=== PATIENT | male | born 1955 | race Caucasian/White ===

== ENCOUNTER 2020-09-16 06:41 | Outpatient (REF) | payer OTHER, MEDICARE, SELFPAY ==
[2020-09-16 07:46] LABS: Glucose Fasting 149 mg/dL (60-99)
[2020-09-17 18:06] LABS: C Peptide < 0.10 ng/mL (0.80-3.85)
== END 2020-09-16 06:42 | disposition home or self-care (01) ==
LOC: HO.LAB 06:41
PROVIDERS: Visit Provider Internal Medicine Endocrinology, Diabetes & Metabolism
DX: E10.9 Type 1 diabetes mellitus without complications (principal)
CPT/HCPCS: 82947; 84681

== ENCOUNTER 2021-03-02 06:14 | Outpatient (REF) | payer OTHER, MEDICARE, SELFPAY ==
[2021-03-02 07:00] LABS: MANUAL DIFF FLAG NO
[2021-03-02 07:13] LABS: Basophils Absolute Auto 0.1 X10*3/uL (0.0-0.2); Basophils Percent Auto 1.1 % (0-2); Eosinophils Absolute Auto 0.5 X10*3/uL (0.0-0.4); Eosinophils Percent Auto 8.2 % (0-4); Hematocrit 46.1 % (42-52); Hemoglobin 15.7 g/dl (14.0-18.0); Imm Gran Abs Auto 0.02 X10*3/uL (0.00-0.03); Imm Gran Pct Auto 0.3 % (0.0-0.4); Lymphocytes Absolute Auto 1.7 X10*3/uL (1.2-4.9); Mean Corpuscular HGB Conc 34.1 g/dl (31.0-36.0); Mean Corpuscular Hemoglobin 31.3 pg (27.0-33.0); Mean Platelet Volume 10.2 fL (9.4-12.4); Monocytes Absolute Auto 0.7 X10*3/uL (0.1-1.2); Monocytes Percent Auto 10.9 % (2-11); Neutrophils Absolute Auto 3.3 X10*3/uL (2.0-8.3); Neutrophils Percent Auto 52.5 % (45-73); Platelet Count 249 X10*3/uL (160-400); Red Blood Count 5.01 X10*6/uL (4.60-5.80); White Blood Count 6.3 X10*3/uL (4.8-10.8)
[2021-03-02 07:35] LABS: Estimated Average Glucose 126 mg/dL
[2021-03-02 07:39] LABS: Creatinine Urine 139.95 mg/dL; Microalbum/Creatinine Ratio Ur 3.5 ug/mg cr
[2021-03-02 07:48] LABS: Alanine Aminotransferase 25 U/L (0-40); Albumin Level 3.9 g/dL (3.5-5.0); Alkaline Phosphatase 44 U/L (39-117); Anion Gap 9 (12-20); Aspartate Amino Transferase 24 U/L (5-37); Blood Urea Nitrogen 19 mg/dL (9-16); Carbon Dioxide 27 mmol/L (22-29); Chloride 107 mmol/L (96-108); Estimated Glomerular Filt Rate > 60; Glucose Random 144 mg/dL (60-115); Potassium 4.4 mmol/L (3.3-5.1); Sodium 139 mmol/L (135-145); Total Protein 6.6 g/dL (6.5-8.0)
[2021-03-02 08:09] LABS: Prostate Specific Antigen 7.38 ng/mL (<0.05-4.0)
== END 2021-03-02 06:15 | disposition home or self-care (01) ==
LOC: HO.LABR 06:14
PROVIDERS: PCP Internal Medicine Endocrinology, Diabetes & Metabolism; Visit Provider Internal Medicine Endocrinology, Diabetes & Metabolism
DX: E10.9 Type 1 diabetes mellitus without complications (principal); N40.0 Benign prostatic hyperplasia without lower urinary tract symptoms; E78.00 Pure hypercholesterolemia, unspecified; Z12.5 Encounter for screening for malignant neoplasm of prostate
CPT/HCPCS: 36415; 80053; 82043; 83036; 84153; 85025

== ENCOUNTER 2021-10-06 17:56 | Emergency (ER) | payer OTHER, MEDICARE, SELFPAY ==
--- NOTE | ~2021-10-06 | CT_ITS ---
EXAMINATION: CT HEAD WITHOUT CONTRAST CLINICAL INFORMATION: Headache COMPARISON: None. TECHNIQUE: Contiguous axial imaging was performed from the skull base to vertex without intravenous administration of contrast. Coronal and sagittal reformatted images are performed at the CT scanner. [This CT examination was performed using dose optimization techniques as appropriate, variously including the following: *Automated exposure control *Adjustment of mA and/or kV according to patient size (this includes techniques or standardized protocols for targeted exams where dose is matched to indication/reason for exam; i.e. extremities or head) *Use of iterative reconstruction technique] DLP: 803 mGy-cm. FINDINGS: There is no evidence of acute intracranial hemorrhage or territorial infarction. No abnormal mass-effect or midline shift is seen. Cifuentes to white matter differentiation is well preserved. No extra-axial fluid collections are identified. The ventricles are normal in size. There is no abnormal attenuation within the brain parenchyma. There is no osseous abnormality. The mastoid air cells and visualized portions of the paranasal sinuses are well-aerated. CT/CT head/brain wo con IMPRESSION: No acute intracranial pathology.
[2021-10-06 18:07] VITALS: BP 156/50; PULSE 74; RESP 18; TEMP 36.5; BMI 27.2
[2021-10-06 20:49] VITALS: BP 134/68; PULSE 65; RESP 18; O2SAT 96
--- NOTE | 2021-10-06 21:01 | ED.NEUROSD ---
HPI - Neuro Symptoms/Deficit General Chief Complaint: Neuro Symptoms/Deficit Stated Complaint: L Sided Facial Droop Time Seen by Provider: 10/06/21 18:42 Source: patient Mode of arrival: ambulatory Limitations: no limitations History of Present Illness HPI Narrative: This is a very pleasant 66 years old patient presented to the emergency department with a left facial droop denies any other neurologic symptoms ,there is no aphasia and no weakness Onset (ago): hour(s) (6) Location: left face Severity: moderate Quality: weak Relieving factors: none Exacerbating factors: none Context: gradual onset Related Data Previous Rx's Medication Instructions Recorded prednisone 20 mg tablet 40 mg PO DAILY #10 tab 10/06/21 Allergies Allergy/AdvReac Type Severity Reaction Status Date / Time No Known Allergies Allergy Verified 10/06/21 18:13 Review of Systems Constitutional: Constitutional: Reports no additional constitutional complaints ENT: Denies vertigo and Denies dizziness Cardiovascular: Cardiovascular: Reports no additional cardiovascular complaints and Denies syncope Respiratory: Respiratory: Reports no additional respiratory complaints Gastrointestinal: Gastrointestinal: Reports no additional gastrointestinal complaints Neurologic: Denies confusion, Denies vertigo, Denies dizziness and Denies syncope Psychiatric: Psychiatric: Denies confusion [facility] Past Medical History Attestation statement: The following information was validated with the patient. Social History Social History Advance Directives: No Advance Directives Information Provided: No Physical Exam Vital Signs: Vital Signs: Last Vital Signs Temp 97.7 F 10/06/21 18:07 Pulse 65 10/06/21 20:49 Resp 18 10/06/21 20:49 BP 134/68 10/06/21 20:49 Pulse Ox 96 10/06/21 20:49 Body Mass Index 27.2 Const: Other: Patient is not toxic-appearing General: No confusion Orientation/consciousness: oriented to person, patient oriented x3 and No confusion HENMT: Head: Yes normal to inspection and Yes No palpable skull fracture present General nose exam: Normal external nose present Face and sinus: Yes normal facial exam and Yes other (There is an left facial droop patient is also unable to close the left eye) Mouth: Normal oral and palatal mucosa present Neck: Neck: Yes normal visual inspection, Yes full ROM and Yes no lymphadenopathy Chest: Chest palpation & inspection: normal inspection of the chest Resp: Effort & Inspection: normal respiratory effort Auscultation: clear to auscultation bilaterally Cardio: Jugular venous distension: no JVD Rate: regular rate Rhythm: regular rhythm GI: Inspection: Yes normal to inspection Palpation (GI): Soft to palpation, not firm, nontender and no guarding Auscultation: normal bowel sounds Neuro: General: oriented to person, patient oriented x3 and No confusion Cranial nerves: Yes Other cranial nerve findings present (left facial droop,left eye unable to close) Cognition (Neuro): normal cognition MDM - Neuro Symptoms/Deficit MDM Narrative Medical decision making narrative: 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 with a negative CT because he is diabetic I anticipate discharge home on prednisone Lab Data Result diagrams: 10/06/21 21:00 10/06/21 21:00 Labs: Lab Results 10/06/21 10/06/21 Range/Units 21:00 21:00 WBC 7.6 (4.8-10.8) X10*3/uL RBC 4.93 (4.60-5.80) X10*6/uL Hgb 15.6 (14.0-18.0) g/dl Hct 45.5 (42.0-52.0) % MCV 92.3 (80.0-98.0) fL MCH 31.6 (27.0-33.0) pg MCHC 34.3 (31.0-36.0) g/dl RDW 12.0 (11.0-16.0) % Plt Count 226 (160-400) X10*3/uL MPV 9.8 (9.4-12.4) fL Immature Gran % (Auto) 0.3 (0.0-0.4) % Neut % (Auto) 53.5 (45-73) % Lymph % (Auto) 27.7 (20-40) % [place] % (Auto) 11.1 H (2-11) % Eos % (Auto) 6.5 H (0-4) % Baso % (Auto) 0.9 (0-2) % Lymph # (Auto) 2.1 (1.2-4.9) X10*3/uL [place] # (Auto) 0.8 (0.1-1.2) X10*3/uL Eos # (Auto) 0.5 H (0.0-0.4) X10*3/uL Baso # (Auto) 0.1 (0.0-0.2) X10*3/uL Abs Immat Gran (auto) 0.02 (0.00-0.03) X10*3/uL Absolute Neuts (auto) 4.1 (2.0-8.3) x10*3/uL Absolute Nucleated RBC 0.000 (0.0-0.012) X10*3/uL Nucleated RBC % (auto) 0.0 (0.0-0.2) /100WBC Sodium 138 (135-145) mmol/L Potassium 4.7 (3.3-5.1) mmol/L Chloride 106 (96-108) mmol/L Carbon Dioxide 26 (22-29) mmol/L Anion Gap 11 L (12-20) BUN 16 (9-16) mg/dL Creatinine 0.97 (0.5-1.4) mg/dL Estim Creat Clear Calc 77.3 Estimated GFR > 60 Random Glucose 188 H (60-115) mg/dL Calcium 9.0 (8.4-10.2) mg/dL Total Bilirubin 0.4 (0.0-1.0) mg/dL AST 21 (5-37) U/L ALT 20 (0-40) U/L Alkaline Phosphatase 38 L (39-117) U/L Total Protein 6.6 (6.5-8.0) g/dL Albumin 3.8 (3.5-5.0) g/dL Discharge Plan Discharge Clinical Impression: Cervantes palsy Patient Disposition: Home, Self-Care Instructions: Cervantes Palsy (ED) Prescriptions: New prednisone 20 mg tablet 40 mg PO DAILY Qty: 10 RF: 0 Interventions: ED Discharge Assessment Last Done: 10/06/21 22:31 Discharge Date/Time: 10/06/21 22:36
--- NOTE | 2021-10-06 21:01 | PC.NURSE ---
ED provider at bed side.
[2021-10-06 21:08] LABS: Basophils Absolute Auto 0.1 X10*3/uL (0.0-0.2); Basophils Percent Auto 0.9 % (0-2); Eosinophils Absolute Auto 0.5 X10*3/uL (0.0-0.4); Eosinophils Percent Auto 6.5 % (0-4); Hematocrit 45.5 % (42.0-52.0); Hemoglobin 15.6 g/dl (14.0-18.0); Imm Gran Abs Auto 0.02 X10*3/uL (0.00-0.03); Imm Gran Pct Auto 0.3 % (0.0-0.4); Lymphocytes Absolute Auto 2.1 X10*3/uL (1.2-4.9); Lymphocytes Percent Auto 27.7 % (20-40); MANUAL DIFF FLAG NO; Mean Corpuscular HGB Conc 34.3 g/dl (31.0-36.0); Mean Corpuscular Hemoglobin 31.6 pg (27.0-33.0); Mean Corpuscular Volume 92.3 fL (80.0-98.0); Mean Platelet Volume 9.8 fL (9.4-12.4); Monocytes Absolute Auto 0.8 X10*3/uL (0.1-1.2); Monocytes Percent Auto 11.1 % (2-11); Neutrophils Absolute Auto 4.1 x10*3/uL (2.0-8.3); Neutrophils Percent Auto 53.5 % (45-73); Platelet Count 226 X10*3/uL (160-400); Red Blood Count 4.93 X10*6/uL (4.60-5.80); White Blood Count 7.6 X10*3/uL (4.8-10.8)
[2021-10-06 21:27] LABS: Alanine Aminotransferase 20 U/L (0-40); Albumin Level 3.8 g/dL (3.5-5.0); Alkaline Phosphatase 38 U/L (39-117); Anion Gap 11 (12-20); Aspartate Amino Transferase 21 U/L (5-37); Bilirubin Total 0.4 mg/dL (0.0-1.0); Blood Urea Nitrogen 16 mg/dL (9-16); Carbon Dioxide 26 mmol/L (22-29); Chloride 106 mmol/L (96-108); Creatinine Clr Calc Pharmacy 77.3; Estimated Glomerular Filt Rate > 60; Glucose Random 188 mg/dL (60-115); Potassium 4.7 mmol/L (3.3-5.1); Sodium 138 mmol/L (135-145); Total Protein 6.6 g/dL (6.5-8.0)
--- NOTE | 2021-10-06 21:34 | PC.NURSE ---
PT ambulated to CT scan.
[2021-10-06] MEDS: predniSONE 20 MG TABLET 40 MG PO (22:31)
== END 2021-10-06 22:36 | disposition home or self-care (01) ==
PROVIDERS: Emergency Provider Emergency Medicine; PCP Internal Medicine Endocrinology, Diabetes & Metabolism
DX: G51.0 Bell's palsy (principal)
CPT/HCPCS: 36415; 70450; 80053; 85025; 99284

== ENCOUNTER 2021-10-13 06:22 | Outpatient (REF) | payer OTHER, MEDICARE, SELFPAY ==
[2021-10-13 07:42] LABS: Cholesterol 224 mg/dL; HDL Cholesterol 77 mg/dL; LDL Cholesterol Calculated 137 mg/dl; Triglycerides 52 mg/dL
[2021-10-13 08:15] LABS: Prostate Specific Antigen Scr 6.36 ng/mL (<0.05-4.0)
[2021-10-13 08:47] LABS: Reflex LDLD? No
[2021-10-14 05:01] LABS: Lyme Abs Screen <0.90 index
== END 2021-10-13 06:23 | disposition home or self-care (01) ==
LOC: HO.LAB 06:22
PROVIDERS: PCP Internal Medicine Endocrinology, Diabetes & Metabolism; Visit Provider Internal Medicine Endocrinology, Diabetes & Metabolism
DX: Z12.5 Encounter for screening for malignant neoplasm of prostate (principal); G51.0 Bell's palsy
CPT/HCPCS: 36415; 80061; 84153; 86617; 86618

== ENCOUNTER 2022-11-24 12:38 | Emergency (ER) | payer OTHER, MEDICARE, SELFPAY ==
[2022-11-24 12:49] VITALS: BP 130/67; PULSE 69; RESP 18; TEMP 37.1; O2SAT 99; BMI 29.0
--- NOTE | 2022-11-24 12:49 | ED_ITS ---
HPI - General Adult General Chief complaint: Skin/Abscess/Foreign Body Stated complaint: CAT SCRATCH R HAND Time Seen by Provider: 11/24/22 12:52 Source: patient and family () Mode of arrival: ambulatory Limitations: no limitations History of Present Illness HPI narrative: Patient is a 67 year old assigned male at with a history of diabetes presenting to the emergency department today with a cat scratch to the right hand. Patient states that last night he was scratched by his cat and this morning it has already started to become red and swell. Patient states that his last tetanus shot was 2 years ago. Patient denies any dizziness, lightheadedness, abdominal pain, nausea, vomiting, fever, chills, blurry vision, double vision, loss of vision, chest pain, difficulty breathing, shortness of breath, back pain, night sweats, pain with urination, increased urinary frequency, increased urinary urgency, blood in his urine or stool, syncope or a near syncopal episode, bowel incontinence, bladder incontinence, bowel retention, bladder retention, or any other complaints at this time. Onset (ago): hour(s) (12) Location: right and upper extremity (hand) Radiation: non-radiation Severity: mild Severity scale (1-10): 2 Quality: aching and dull Pain Consistency: constant Relieving factors: none Exacerbating factors: none Associated symptoms: denies other symptoms Treatments prior to arrival: none Related Data Previous Rx's Medication Instructions Recorded prednisone 20 mg tablet 40 mg PO DAILY #10 tabs 10/06/21 amoxicillin 875 mg-potassium 1 tab PO BID 10 days #20 tabs 11/24/22 clavulanate 125 mg tablet Allergies Allergy/AdvReac Type Severity Reaction Status Date / Time No Known Allergies Allergy Verified 10/06/21 18:13 Review of Systems Constitutional: Constitutional: Reports no additional constitutional complaints, Denies chills, Denies fever(s) and Denies night sweats Eyes: Eyes: Reports no additional eye complaints, Denies blurry vision, Denies change in vision, Denies diplopia, Denies eye discharge, Denies loss of vision and Denies eye pain ENT: Denies dizziness Cardiovascular: Cardiovascular: Reports no additional cardiovascular complaints, Denies chest pain, Denies lightheadedness, Denies Loss of Consciousness and Denies dyspnea Respiratory: Respiratory: Reports no additional respiratory complaints and Denies dyspnea Gastrointestinal: Gastrointestinal: Reports no additional gastrointestinal complaints, Denies abdominal pain, Denies melena, Denies hematochezia, Denies change in bowel habits and Denies change in stool character Genitourinary: Genitourinary: Reports no additional male genitourinary comp laints, Denies hematuria, Denies oliguria, Denies difficulty urinating, Denies dysuria, Denies urinary frequency, Denies urinary hesitancy, Denies urinary incontinence and Denies urinary urgency Musculoskeletal: Musculoskeletal: Reports no additional musculoskeletal complaints, Denies numbness and Denies tingling Comments: small scratch to dorsal right hand Neurologic: Denies dizziness, Denies loss of vision, Denies numbness and Denies tingling Psychiatric: Psychiatric: Reports no additional psychiatric complaints Endocrine: Endocrine: Reports no additional endocrine complaints Hematologic/Lymphatic: Hematologic/Lymphatic: Reports no additional hematologic/lymphatic complaints Allergic/Immunologic: Allergic/Immunologic: Reports no additional allergic/immunologic complaints PMFSH Past Medical History Attestation statement: The following information was validated with the patient. Source: old records reviewed and nursing notes reviewed Physical Exam ED Vital Signs: Vital Signs - 24 hr 11/24/22 12:49 Temperature 98.8 F Pulse Rate 69 Respiratory Rate 18 Blood Pressure 130/67 Pulse Oximetry 99 Oxygen Delivery Method Room Air BMI result Body Mass Index 29.0 Const General: cooperative, no acute distress, alert and awake Nutritional Appearance: well nourished Orientation/consciousness: patient oriented x3 Limitations: no limitations [facility] Head: Yes normal to inspection and Yes atraumatic Ears: hearing grossly normal bilaterally and external ears normal General nose exam: Normal external nose present, no nasal discharge noted and no epistaxis Face and sinus: Yes normal facial exam, No abrasion and No laceration Mouth: Normal oral and palatal mucosa present, no drooling and no muffled voice Eyes General: appearance normal, both eyes and all related structures Periorbital: periorbital findings normal Eyelids: Yes eyelids normal Conjunctivae: conjunctivae normal Pupils: Equal, round and reactive pupils present EOM: EOMs intact bilaterally Neck Neck: Yes normal visual inspection, Yes full ROM and Yes no lymphadenopathy Chest Chest palpation & inspection: normal inspection of the chest Resp Effort & Inspection: normal respiratory effort and able to speak in complete sentences Auscultation: clear to auscultation bilaterally Cardio Rate: regular rate Rhythm: regular rhythm GI Inspection: Yes normal to inspection Palpation (GI): Soft to palpation, not firm, nontender, no guarding and not rigid Skin Other: small superficial scratch to the right dorsal hand with minimal surrounding erythema and swelling Neuro General: patient oriented x3 and moves all extremities Cranial nerves: Yes Equal, round and reactive pupils present Cognition (Neuro): normal cognition Motor exam (neuro): 5/5 motor strength present throughout Sensory Exam: Normal double simultaneous stimulation for sensation Coordination: [id number] test normal Extrem General: Yes full ROM and Yes capillary refill normal Psych Appearance: grossly normal Mental Status: mental status grossly normal Affect: normal affect Attitude: cooperative Thought process: Normal thought process present Thought content: Normal thought content present Insight: Good insight present (Psych) Medical Decision Making Medical Decision Making MDM Narrative: Patient is a 67 year old assigned male at with a history of diabetes presenting to the emergency department today with a cat scratch. Patient's physical exam showed a superficial scratch to the right dorsal hand with minimal swelling and erythema. Patient's right hand ROM, circulation, strength, and sensation were present and normal. I explained my physical exam findings to the patient and the patient's . I answered all questions asked by the patient and the patient's . I stressed the importance of the patient taking his medication as prescribed. I stressed the importance of the patient following up with his primary care provider. I stressed the importance of the patient returning to the emergency department immediately if his symptoms were to worsen or if he were to develop any dizziness, shortness of breath, difficulty breathing, chest pain, blurry vision, loss of vision, nausea, vomiting, ab dominal pain, fever, chills, back pain, or any other complaints. Patient and the patient's verbalized agreement and understanding with this treatment plan and discharge. Differential Diagnosis Differential Diagnoses: The differential diagnosis associated with the presentation includes cat scratch, wound from animal, abrasion Independent Historian Clinical information obtained from an independent historian. History obtained from or confirmed by: Spouse (patient's confirmed patient's retelling of events) Chronic Conditions Patient?s care impacted by: Diabetes (patient has diabetes - making his risk of infection higher) Discharge Plan Discharge Clinical Impression: Cat scratch Patient Disposition: Home, Self-Care Instructions: Cat Scratch Disease (ED) Additional Instructions: Follow up with your primary care provider. Return to the emergency department immediately if your symptoms worsen or if you develop any dizziness, shortness of breath, difficulty breathing, chest pain, blurry vision, loss of vision, nausea, vomiting, abdominal pain, fever, chills, back pain, or any other complaints. Prescriptions: New amoxicillin-pot clavulanate 875-125 mg tablet 1 tab PO BID 10 Days Qty: 20 0RF No Action prednisone 20 mg tablet 40 mg PO DAILY Qty: 10 0RF Referrals: Jc Nagel MD [Primary Care Provider] - Print Language: Uruguayan
== END 2022-11-24 13:00 | disposition home or self-care (01) ==
LOC: HO.ED 12:57
PROVIDERS: Emergency Provider Emergency Medicine Emergency Medical Services; PCP Internal Medicine Endocrinology, Diabetes & Metabolism
DX: S60.511A Abrasion of right hand, initial encounter (principal); W55.03XA Scratched by cat, initial encounter; Y93.89 Activity, other specified; Y92.019 Unspecified place in single-family (private) house as the place of occurrence of the external cause; Y99.9 Unspecified external cause status
CPT/HCPCS: 99282; 99283

== ENCOUNTER 2023-01-12 07:06 | Outpatient (REF) | payer OTHER, MEDICARE, SELFPAY ==
[2023-01-12 07:26] LABS: MANUAL DIFF FLAG NO
[2023-01-12 07:59] LABS: Basophils Absolute Auto 0.1 X10*3/uL (0.0-0.2); Basophils Percent Auto 0.9 % (0-2); Eosinophils Absolute Auto 0.5 X10*3/uL (0.0-0.4); Eosinophils Percent Auto 7.1 % (0-4); Hematocrit 52.6 % (42.0-52.0); Imm Gran Abs Auto 0.01 X10*3/uL (0.00-0.03); Imm Gran Pct Auto 0.1 % (0.0-0.4); Lymphocytes Percent Auto 28.2 % (20-40); Mean Corpuscular HGB Conc 34.2 g/dl (31.0-36.0); Mean Corpuscular Hemoglobin 31.5 pg (27.0-33.0); Mean Platelet Volume 10.6 fL (9.4-12.4); Monocytes Absolute Auto 0.7 X10*3/uL (0.1-1.2); Monocytes Percent Auto 10.1 % (2-11); Neutrophils Absolute Auto 3.8 x10*3/uL (2.0-8.3); Neutrophils Percent Auto 53.6 % (45-73); Platelet Count 244 X10*3/uL (160-400); Red Blood Count 5.72 X10*6/uL (4.60-5.80); Red Cell Distribution Width 12.3 % (11.0-16.0)
[2023-01-12 08:27] LABS: Alanine Aminotransferase 25 U/L (0-40); Albumin Level 4.2 g/dL (3.5-5.0); Alkaline Phosphatase 46 U/L (39-117); Anion Gap 12 (12-20); Aspartate Amino Transferase 25 U/L (5-37); Bilirubin Total 1.1 mg/dL (0.0-1.0); Blood Urea Nitrogen 15 mg/dL (9-16); Calcium 9.8 mg/dL (8.4-10.2); Carbon Dioxide 28 mmol/L (22-29); Chloride 105 mmol/L (96-108); Cholesterol 251 mg/dL; Estimated Glomerular Filt Rate > 60; Glucose Random 135 mg/dL (60-115); HDL Cholesterol 63 mg/dL; LDL Cholesterol Calculated 174 mg/dl; Potassium 5.1 mmol/L (3.3-5.1); Sodium 140 mmol/L (135-145); Total Protein 7.4 g/dL (6.5-8.0); Triglycerides 73 mg/dL
[2023-01-15 11:23] LABS: Free Prostate Spec Ag 2.1 ng/mL; Percent Free Prostate Spec Ag 28 % (calc) (>25); Prostate Specific Ag Total 7.6 ng/mL (< OR = 4.0)
== END 2023-01-12 07:07 | disposition home or self-care (01) ==
LOC: HO.LAB 07:06
PROVIDERS: PCP Internal Medicine Endocrinology, Diabetes & Metabolism; Visit Provider Internal Medicine Endocrinology, Diabetes & Metabolism
DX: E11.9 Type 2 diabetes mellitus without complications (principal)
CPT/HCPCS: 36415; 80053; 80061; 84154; 85025

== ENCOUNTER 2023-07-20 07:22 | Outpatient (REF) | payer OTHER, MEDICARE, SELFPAY ==
[2023-07-20 07:51] LABS: MANUAL DIFF FLAG NO
[2023-07-20 08:29] LABS: Basophils Absolute Auto 0.1 X10*3/uL (0.0-0.2); Basophils Percent Auto 0.9 % (0-2); Eosinophils Absolute Auto 0.5 X10*3/uL (0.0-0.4); Hematocrit 49.1 % (42.0-52.0); Imm Gran Abs Auto 0.02 X10*3/uL (0.00-0.03); Imm Gran Pct Auto 0.3 % (0.0-0.4); Lymphocytes Absolute Auto 1.9 X10*3/uL (1.2-4.9); Lymphocytes Percent Auto 27.8 % (20-40); Mean Corpuscular HGB Conc 34.6 g/dl (31.0-36.0); Mean Corpuscular Hemoglobin 31.3 pg (27.0-33.0); Mean Corpuscular Volume 90.4 fL (80.0-98.0); Mean Platelet Volume 9.9 fL (9.4-12.4); Monocytes Absolute Auto 0.8 X10*3/uL (0.1-1.2); Monocytes Percent Auto 12.1 % (2-11); Neutrophils Absolute Auto 3.5 x10*3/uL (2.0-8.3); Neutrophils Percent Auto 51.9 % (45-73); Platelet Count 223 X10*3/uL (160-400); Red Blood Count 5.43 X10*6/uL (4.60-5.80); Red Cell Distribution Width 12.1 % (11.0-16.0); White Blood Count 6.7 X10*3/uL (4.8-10.8)
[2023-07-20 09:27] LABS: Prostate Specific Antigen 6.76 ng/mL (<0.05-4.0)
[2023-07-20 10:12] LABS: Creatinine Urine 116.18 mg/dL; Microalbumin Urine < 5.0 mg/L
== END 2023-07-20 07:23 | disposition home or self-care (01) ==
LOC: HO.LAB 07:22
PROVIDERS: PCP Internal Medicine Endocrinology, Diabetes & Metabolism; Visit Provider Internal Medicine Endocrinology, Diabetes & Metabolism
DX: E10.9 Type 1 diabetes mellitus without complications (principal); D45 Polycythemia vera; R97.20 Elevated prostate specific antigen [PSA]; Z12.5 Encounter for screening for malignant neoplasm of prostate
CPT/HCPCS: 36415; 82043; 82570; 84153; 85025

== ENCOUNTER 2023-12-07 07:11 | Outpatient (REF) | payer OTHER, MEDICARE, SELFPAY ==
[2023-12-07 08:20] LABS: Alanine Aminotransferase 25 U/L (0-40); Albumin Level 3.9 g/dL (3.5-5.0); Alkaline Phosphatase 39 U/L (39-117); Anion Gap 11 (12-20); Aspartate Amino Transferase 25 U/L (5-37); Bilirubin Total 0.9 mg/dL (0.0-1.0); Blood Urea Nitrogen 13 mg/dL (9-16); Calcium 9.8 mg/dL (8.4-10.2); Carbon Dioxide 26 mmol/L (22-29); Chloride 106 mmol/L (96-108); Cholesterol 171 mg/dL (<200); Estimated Glomerular Filt Rate > 60; Glucose Random 140 mg/dL (60-115); HDL Cholesterol 54 mg/dL (>40); LDL Cholesterol Calculated 104 mg/dL (<100); Potassium 5.2 mmol/L (3.3-5.1); Sodium 138 mmol/L (135-145); Total Protein 7.2 g/dL (6.5-8.0); Triglycerides 66 mg/dL (<150)
[2023-12-07 08:43] LABS: Prostate Specific Antigen 11.89 ng/mL (<0.05-4.0)
== END 2023-12-07 07:12 | disposition home or self-care (01) ==
LOC: HO.LAB 07:11
PROVIDERS: PCP Internal Medicine Endocrinology, Diabetes & Metabolism; Visit Provider Internal Medicine Endocrinology, Diabetes & Metabolism
DX: Z12.5 Encounter for screening for malignant neoplasm of prostate (principal); E10.9 Type 1 diabetes mellitus without complications; E78.00 Pure hypercholesterolemia, unspecified; I10 Essential (primary) hypertension
CPT/HCPCS: 36415; 80053; 80061; 84153

== ENCOUNTER 2024-05-15 12:22 | Outpatient (REF) | payer OTHER, MEDICARE, SELFPAY ==
[2024-05-18 11:28] LABS: Free Prostate Spec Ag 1.6 ng/mL; Percent Free Prostate Spec Ag 21 % (calc) (>25); Prostate Specific Ag Total 7.8 ng/mL (< OR = 4.0)
== END 2024-05-15 12:23 | disposition home or self-care (01) ==
LOC: HO.LAB 12:22
PROVIDERS: PCP Internal Medicine Endocrinology, Diabetes & Metabolism; Visit Provider Urology
DX: R97.20 Elevated prostate specific antigen [PSA] (principal)
CPT/HCPCS: 36415; 84154

== ENCOUNTER 2024-12-05 07:13 | Outpatient (REF) | payer OTHER, MEDICARE, SELFPAY ==
[2024-12-05 08:15] LABS: Cholesterol 163 mg/dL (<200); HDL Cholesterol 56 mg/dL (>40); LDL Cholesterol Calculated 97 mg/dL (<100); Triglycerides 54 mg/dL (<150)
== END 2024-12-05 07:14 | disposition home or self-care (01) ==
LOC: HO.LAB 07:13
PROVIDERS: Visit Provider Internal Medicine Endocrinology, Diabetes & Metabolism
DX: E10.9 Type 1 diabetes mellitus without complications (principal)
CPT/HCPCS: 36415; 80061

== ENCOUNTER 2025-03-06 07:10 | Outpatient (REF) | payer OTHER, MEDICARE, SELFPAY ==
[2025-03-06 07:23] LABS: MANUAL DIFF FLAG NO
[2025-03-06 07:36] LABS: Basophils Absolute Auto 0.1 X10*3/uL (0.0-0.2); Basophils Percent Auto 0.9 % (0-2); Eosinophils Absolute Auto 0.3 X10*3/uL (0.0-0.4); Hematocrit 48.3 % (42.0-52.0); Hemoglobin 16.8 g/dl (14.0-18.0); Imm Gran Abs Auto 0.01 X10*3/uL (0.00-0.03); Imm Gran Pct Auto 0.2 % (0.0-0.4); Lymphocytes Absolute Auto 1.7 X10*3/uL (1.2-4.9); Lymphocytes Percent Auto 26.9 % (20-40); Mean Corpuscular HGB Conc 34.8 g/dl (31.0-36.0); Mean Corpuscular Hemoglobin 31.4 pg (27.0-33.0); Mean Corpuscular Volume 90.3 fL (80.0-98.0); Mean Platelet Volume 9.8 fL (9.4-12.4); Monocytes Absolute Auto 0.6 X10*3/uL (0.1-1.2); Monocytes Percent Auto 10.1 % (2-11); Neutrophils Absolute Auto 3.6 x10*3/uL (2.0-8.3); Neutrophils Percent Auto 56.9 % (45-73); Platelet Count 226 X10*3/uL (160-400); Red Blood Count 5.35 X10*6/uL (4.60-5.80); Red Cell Distribution Width 12.1 % (11.0-16.0); White Blood Count 6.4 X10*3/uL (4.8-10.8)
[2025-03-06 08:06] LABS: Alanine Aminotransferase 29 U/L (0-40); Alkaline Phosphatase 39 U/L (39-117); Aspartate Amino Transferase 31 U/L (5-37); Blood Urea Nitrogen 17 mg/dL (9-16); Calcium 9.6 mg/dL (8.4-10.2); Cholesterol 179 mg/dL (<200); Estimated Glomerular Filt Rate > 60; Glucose Random 164 mg/dL (60-115); HDL Cholesterol 60 mg/dL (>40); LDL Cholesterol Calculated 107 mg/dL (<100); Total Protein 6.9 g/dL (6.5-8.0); Triglycerides 60 mg/dL (<150)
[2025-03-06 08:11] LABS: Creatinine Urine 153.29 mg/dL; Microalbum/Creatinine Ratio Ur 7.1 ug/mg cr (<30)
[2025-03-06 08:18] LABS: Anion Gap 11 (12-20); Carbon Dioxide 25 mmol/L (22-29); Chloride 108 mmol/L (96-108); Sodium 139 mmol/L (135-145)
== END 2025-03-06 07:11 | disposition home or self-care (01) ==
LOC: HO.LAB 07:10
PROVIDERS: Visit Provider Internal Medicine Endocrinology, Diabetes & Metabolism
DX: I10 Essential (primary) hypertension (principal); E78.00 Pure hypercholesterolemia, unspecified; E10.9 Type 1 diabetes mellitus without complications
CPT/HCPCS: 36415; 80053; 80061; 82043; 82570; 85025

== ENCOUNTER 2025-04-21 16:11 | Emergency (ER) | payer OTHER, MEDICARE, SELFPAY ==
--- NOTE | ~2025-04-21 | XR_ITS ---
CLINICAL HISTORY: Acute STEMI, evaluate mediastinum Single view of the chest. COMPARISON: None FINDINGS: Normal heart and mediastinal contours. No consolidation. Bronchial wall thickening. No pleural effusion or pneumothorax. No acute fracture. IMPRESSION: 1. Mild bronchial wall thickening. This document has been electronically signed by: Jose Porras MD on 04/21/2025 16:49:44
--- NOTE | 2025-04-21 16:14 | ECG_ITS ---
Test Reason : chest pain Blood Pressure : */* mmHG Vent. Rate : 76 BPM Atrial Rate : 76 BPM P-R Int : 172 ms QRS Dur : 86 ms QT Int : 372 ms P-R-T Axes : 76 66 77 degrees QTcB Int : 418 ms Normal sinus rhythm Septal infarct , age undetermined Inferior injury pattern ACUTE [place] / STEMI Consider right ventricular involvement in acute inferior infarct Abnormal ECG No previous ECGs available Referred By: Monica Guevara Electronically Signed By: EPHRAIM GUAMAN
--- NOTE | 2025-04-21 16:22 | ED.CHESTPAIN ---
HPI - Chest Pain General Stated Complaint: Chest pain, SOB Time Seen by Provider: 04/21/25 16:22 Source: patient Mode of arrival: ambulatory Limitations: no limitations History of Present Illness ED Provider: Dr. Spike Mcgrath HPI narrative: 69-year-old male with a history of diabetes mellitus, ulcerative colitis with right lower quadrant colostomy 40 years prior presents emergency department for evaluation of chest pain. The patient states that he was digging with a his tractor and working outside when he developed crushing, sternal at 13:00 hours. The patient states the pain persisted, he became dizzy and lightheaded so he came to the emergency department. At the time of presentation to the emergency department he states that his chest pain resolved but he was still feeling dizzy and lightheaded. EKG your wall myocardial infarction. He was brought immediately back to a treatment room. He was given aspirin 324 mg orally, atorvastatin 80 mg orally and heparin 4000 unit bolus. Initial vital signs all 74, blood pressure 174/64, temperature 98.3 degrees F orally, to saturation 100% on room air. I did discuss the patient's presentation with the covering vibrating screed operator, Dr. Adame and the patient was accepted as an ED to laborer tin can transfer. Patient had 2 episodes of vomiting here in the emergency department. He was given Zofran 4 mg IV. Patient became bradycardic but vital signs remained stable. He was given normal saline 1 L IV bolus and a 2 L of LR was also given as an IV bolus. Portable chest x-ray revealed a normal mediastinum. Paramedics arrived in the emergency department. The patient was placed on the paramedics environmental monitoring technician, O2 saturation monitor and defibrillator pads were placed on the patient's chest and the patient was transferred to [facility] for further management. Related Data Previous Rx's ?Medication ?Instructions ?Recorded prednisone 20 mg tablet 40 mg (2 x 20 mg) PO DAILY #10 tabs 10/06/21 amoxicillin 875 mg-potassium 1 tab PO BID 10 days #20 tabs 11/24/22 clavulanate 125 mg tablet Allergies Allergy/AdvReac Type Severity Reaction Status Date / Time No Known Allergies Allergy Verified 04/21/25 16:29 Review of Systems Review of Systems: Yes all other systems are reviewed and are negative [facility] Past Medical History [facility] Narrative: Social history: The patient is in his is here in the emergency department with him. The patient denied tobacco, alcohol and drug use Physical Exam Vital Signs: Exam: General: Awake, alert, anxious, appears to be in distress but denies having chest pain, patient was diaphoretic Head: Normocephalic, atraumatic EENT: PERRL, Lids normal, sclera normal, conjunctiva normal, nose normal , ears normal, throat without erythema or exudates Neck: Supple, no adenopathy Lung: breath sounds symmetric, no wheezing, rales or rhonchi Chest: symmetric movement, nontender Heart: regular rate and rhythm, normal S1, S2 no murmurs or rubs Abdomen: soft, non-tender, nondistended, normal bowel sounds, right lower abdominal colostomy bag Back: no vertebral tenderness, no CVAT Extremities: no deformities, moves all extremities symmetrically Neuro: Awake, alert, oriented, normal speech, cranial nerves intact, moves all extremities symmetrically Psych: Pleasant, cooperative Medical Decision Making Medical Decision Making MDM Narrative: 69-year-old male with a history of diabetes mellitus, ulcerative colitis with right lower quadrant colostomy 40 years prior presents emergency department for evaluation of chest pain. The patient states that he was digging with a his tractor and working outside when he developed crushing, sternal at 13:00 hours. The patient states the pain persisted, he became dizzy and lightheaded so he came to the emergency department. At the time of presentation to the emergency department he states that his chest pain resolved but he was still feeling dizzy and lightheaded. EKG your wall myocardial infarction. He was brought immediately back to a treatment room. He was given aspirin 324 mg orally, atorvastatin 80 mg orally and heparin 4000 unit bolus. Initial vital signs all 74, blood pressure 174/64, temperature 98.3 degrees F orally, to saturation 100% on room air. I did discuss the patient's presentation with the covering vibrating screed operator, Dr. Adame and the patient was accepted as an ED to laborer tin can transfer. Patient had 2 episodes of vomiting here in the emergency department. He was given Zofran 4 mg IV. Patient became bradycardic but vital signs remained stable. He was given normal saline 1 L IV bolus and a 2 L of LR was also given as an IV bolus. Portable chest x-ray revealed a normal mediastinum. Paramedics arrived in the emergency department. The patient was placed on the paramedics environmental monitoring technician, O2 saturation monitor and defibrillator pads were placed on the patient's chest and the patient was transferred to [facility] for further management. Differential diagnosis: ?Includes but is not limited to myocardial infarction, myocardial ischemia, inferior wall [place], posterior wall [place], right ventricular [place], anemia, electrolyte abnormality Course: 16:59 My independent interpretation patient's laboratory evaluation is as follows: WBC 8800, H&H 16.6 and 46.4, platelet count 248-the CBC was normal. PT/INR 10.9 and 1.0, PTT 28.5-coags were normal. BUN was elevated 17. Glucose elevated 137. Troponin was 15.1. BNP was below detectable limits. Chest x-ray revealed no CHF, normal mediastinum The patient was transferred to [facility] by assisted living housekeeper ambulance. Admission/Observation Consideration of admission/observation: Escalation of care including admission/observation considered (Yes) Consult Healthcare Provider Management of the patient was discussed with: Salesperson [employer] [facility] vibrating screed operator, Dr. Adame Independent Interpretation I performed an independent interpretation of an: EKG Interpretation: EKG 1: 04/21/2025 at 16:13 hours: Normal sinus rhythm rate of 76, normal FL, QRS and QTC intervals, greater than 1, 3 and AVF, there is also less than [address] segment elevation in V5 and V6 no significant T-wave abnormalities, no PACs, no PVCs EKG 2: 04/21/2025 at 16:27 hours: Normal sinus rhythm with a rate of 60, normal FL interval, QRS duration QTC interval, 1-[address] segment elevation in leads 2, 3 and AVF, that has also less than [address] segment elevation in V5 and V6, no significant T-wave abnormalities, no PACs, no PVCs. There is no significant change between EKG 1 and EKG 2. Radiology Impression Discussion of test interpretation with radiology: I have reviewed the radiologist's reading. Radiologist Impression: Single view of the chest. COMPARISON: None FINDINGS: Normal heart and mediastinal contours. No consolidation. Bronchial wall thickening. No pleural effusion or pneumothorax. No acute fracture. IMPRESSION: 1. Mild bronchial wall thickening. This document has been electronically signed by: Jose Porras MD on 04/21/2025 16:49:44 Independent Historian Clinical information obtained from an independent historian. History obtained from or confirmed by: Spouse Chronic Conditions Patient?s care impacted by: Diabetes Critical Care Time Critical Care Time Critical Care Time: Yes Total Critical Care Time: 35 Attestation: Critical Care: The patient was critically ill with a high probability of imminent or life threatening deterioration. I spent greater than 30 minutes of discontinuous time evaluating the patient,delivering critical care at the bedside, discussing and evaluating pertinent data with consultants. Critical care time does not include time spent performing separately billable procedures or teaching. Total time spent performing critical care was 35 minutes. Discharge Plan Discharge Clinical Impression: Acute [place], inferior wall, Presence of insulin pump Nausea & vomiting Qualifiers: Vomiting type: unspecified Qualified Code(s): R11.2 - Nausea with vomiting, unspecified Diabetes mellitus Qualifiers: Diabetes mellitus type: type 1 Patient Disposition: [facility] Transfer Details: ED to [facility] laborer tin can transfer, accepting attending is Dr. Adame Prescriptions: No Action prednisone 20 mg tablet 40 mg PO DAILY Qty: 10 0RF amoxicillin-pot clavulanate 875-125 mg tablet 1 tab PO BID 10 Days Qty: 20 0RF Print Language: Spanish
--- NOTE | 2025-04-21 16:23 | ECG_ITS ---
Test Reason : FL Blood Pressure : */* mmHG Vent. Rate : 60 BPM Atrial Rate : 60 BPM P-R Int : 170 ms QRS Dur : 88 ms QT Int : 402 ms P-R-T Axes : 74 70 75 degrees QTcB Int : 402 ms Normal sinus rhythm with sinus arrhythmia ST elevation consider inferior injury or acute infarct ACUTE FL / STEMI Consider right ventricular involvement in acute inferior infarct Abnormal ECG When compared with ECG of 21-Apr-2025 16:13, No significant change was found Referred By: Spike Mcgrath Electronically Signed By: EPHRAIM GUAMAN
[2025-04-21 16:26] VITALS: BP 147/64; PULSE 64; RESP 30; TEMP 36.5; O2SAT 100; BMI 26.5
[2025-04-21] MEDS: Atorvastatin Calcium 80 MG TABLET PO (16:33)
[2025-04-21] MEDS: Aspirin 81 MG TAB.CHEW 324 MG PO (16:33)
[2025-04-21] MEDS: Heparin Sodium,Porcine 5,000 UNIT/ML VIAL 4000 UNIT IVPUSH (16:33)
[2025-04-21] MEDS: 0.9 % Sodium Chloride 1,000 ML 999 ML IV (16:35)
[2025-04-21 16:38] LABS: MANUAL DIFF FLAG NO
[2025-04-21 16:39] VITALS: BP 92/43; PULSE 56; RESP 14; O2SAT 96
[2025-04-21] MEDS: Lactated Ringers 1,000 ML 999 ML IV (16:40)
[2025-04-21 16:41] LABS: Basophils Percent Auto 0.5 % (0-2); Eosinophils Absolute Auto 0.2 X10*3/uL (0.0-0.4); Hematocrit 46.4 % (42.0-52.0); Hemoglobin 16.6 g/dl (14.0-18.0); Imm Gran Abs Auto 0.03 X10*3/uL (0.00-0.03); Imm Gran Pct Auto 0.3 % (0.0-0.4); Lymphocytes Percent Auto 22.2 % (20-40); Mean Corpuscular HGB Conc 35.8 g/dl (31.0-36.0); Mean Corpuscular Hemoglobin 31.9 pg (27.0-33.0); Mean Corpuscular Volume 89.1 fL (80.0-98.0); Mean Platelet Volume 9.7 fL (9.4-12.4); Monocytes Absolute Auto 0.6 X10*3/uL (0.1-1.2); Monocytes Percent Auto 7.2 % (2-11); Neutrophils Percent Auto 67.8 % (45-73); Platelet Count 248 X10*3/uL (160-400); Red Blood Count 5.21 X10*6/uL (4.60-5.80); White Blood Count 8.8 X10*3/uL (4.8-10.8)
[2025-04-21] MEDS: ondansetron HCL 4 MG/2 ML VIAL IVPUSH ×2 (16:46→16:49)
[2025-04-21 16:47] LABS: Prothrombin Time 10.9 SEC (10.9-12.4)
[2025-04-21 16:50] LABS: Partial Thromboplastin Time 28.5 SEC (26.0-36.8)
[2025-04-21 16:51] VITALS: BP 92/43; PULSE 56; RESP 14; TEMP -17.7; TEMP 0; O2SAT 96
--- NOTE | 2025-04-21 16:52 | PC.NURSE ---
patient presented to the ED from triage, states he started having crushing chest pain around 1300, patient came to ED and EKG was done in triage, noting STEMI. patient moved to room 20, IV access obtained 18# RFA labs obtained, #20 IV placed in LAC. patient is alert and oriented x4, states he felt sob, patient speaking in short sentences. patient noted to be pale and diaphoretic. patient medicated per MAR. aprox 1640 patient started to feel increasingly sob, dizzy. patient placed on 2lNC, EMS arrived, ED provider requested LR bolus hung with pressure bag. patient noted to jamari down to 43, crash cart pulled to bedside, patient placed on pacer pads. patient began vomiting 1646, 4mg ivp zofran given, patient continues to vomit 1649 additional 4mg ivp zofran given. patient HR came back up to 70s. patient transferred into ems stretcher. patient off of unit at 1651. 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 report given to [facility] main[facility] laborer
[2025-04-21 17:00] LABS: Alanine Aminotransferase 31 U/L (0-40); Albumin Level 4.1 g/dL (3.5-5.0); Alkaline Phosphatase 36 U/L (39-117); Anion Gap 12 (12-20); Aspartate Amino Transferase 34 U/L (5-37); Bilirubin Total 0.7 mg/dL (0.0-1.0); Blood Urea Nitrogen 17 mg/dL (9-16); Calcium 9.8 mg/dL (8.4-10.2); Carbon Dioxide 24 mmol/L (22-29); Chloride 106 mmol/L (96-108); Creatinine Clr Calc Pharmacy 73.4; Estimated Glomerular Filt Rate > 60; Glucose Random 137 mg/dL (60-115); Lipase 11 U/L (8-78); Potassium 4.1 mmol/L (3.3-5.1); Sodium 138 mmol/L (135-145)
[2025-04-21 17:05] LABS: B Type Natriuretic Peptide < 10 pg/mL (<100)
[2025-04-21 17:06] LABS: Troponin-I High Sensitivity 15.1 ng/L (<3.5-35.0)
== END 2025-04-21 16:51 | disposition short-term general hospital (02) ==
PROVIDERS: Emergency Provider Emergency Medicine Emergency Medical Services
DX: I21.19 ST elevation (STEMI) myocardial infarction involving other coronary artery of inferior wall (principal); R11.2 Nausea with vomiting, unspecified; E10.9 Type 1 diabetes mellitus without complications; R07.9 Chest pain, unspecified; R42 Dizziness and giddiness; Z96.41 Presence of insulin pump (external) (internal)
CPT/HCPCS: 36415; 71045; 80053; 83690; 83880; 84484; 85025; 85610; 85730; 93005; 96361; 96374; 96375; 99285; J1644; J2405; J7120

== ENCOUNTER → 2025-04-21 16:14 | Outpatient (BNV) | payer OTHER, MEDICARE, SELFPAY | PROVIDERS: Emergency Provider Emergency Medicine Emergency Medical Services; Visit Provider Internal Medicine | DX: I21.9 Acute myocardial infarction, unspecified (principal) | CPT/HCPCS: 93010 ==

== ENCOUNTER → 2025-04-21 16:23 | Outpatient (BNV) | payer OTHER, MEDICARE, SELFPAY | PROVIDERS: Emergency Provider Emergency Medicine Emergency Medical Services; Visit Provider Radiology Diagnostic Radiology | DX: J98.09 Other diseases of bronchus, not elsewhere classified (principal) | CPT/HCPCS: 71045 ==

== ENCOUNTER 2025-04-29 07:27 | Outpatient (REF) | payer OTHER, MEDICARE, SELFPAY ==
--- OUTSIDE RECORDS SUMMARY | 2025-04-29 07:35 | XMS_ITS | Continuity of Care Document ---
Author Organization [facility] [address] [facility] [address] [place] [address] Phone [phone] Care Team Providers Care Residential Advisor Name Role Phone Jc Nagel M.D. Care Team Information Rece iver [phone] Gilbert Mason Care Team Information Receive r [phone] Problems Active Problems Provider Date Diabetes mellitus Jc Nagel M.D. Onset: 0 08/10/2022 Raised prostate specific antigen Jc Nagel M.D. Onset: 08/10/2022 Ulcerative colitis Jc Nagel M.D. Onset: 08/10/2022 Hypercholesterolemia Jc Nagel M.D. Onset : 08/10/2022 History of colectomy cJ Nagel M.D. Onset : 08/10/2022 Social History Type Date Description Comments Sex Male Sex Unknown Tobacco Use Start: Unknown Never Smoked Cigarettes Smoking Status Reviewed: 05/17/23 Never Smoked Cigaret padmini ETOH Use Never used alcohol Allergies and adverse reactions Description No Known Drug Allergies Medications Active Medications SIG Qnty Indications Order ing Provider Date Guardian 4 Glucose SensorMisc change sensor every 7 days 1units Jc Nagel M.D. 05/12/2024 Onetouch Delica Plus Lancets Extra Fine 33GPlus 33G Misc use one to test blood sugars 5 times a day dx: e11.9 450units E11.9 Liyah Foss M.D. 05/12/2024 Contour Next Blood Glucose TestStrips test twice a day dx:e10.9 150units E10.9 Jc Nagel M.D. 04/09/2024 Rosuvastatin Igspoce64oc Tablets Take 1 Tablet By Mouth Every Day 90tajody Foss M.D. 01/22/2023 Freestyle Lite TestStrips Lite Strip Use 1 Strip To Test Blood Sugars Six (6) Times A Day 600unld Nagel M.D. Escitalopram Ckywqcn70xt Tablets Take 1 Tablet By Mouth Every Day 90tajody Foss M.D. Lvqlstd490Smah/ML Solution Inject 50-60 Units Under The Skin Every Day as Directed Via Insulin Pump 60unld Nagel M.D. Fslpvcxyat1ke Tablets Take 1 Tablet By Mouth Every Day 90tajody Foss M.D. Vital Signs Date Vital Result Comment 03/19/2025 8:22am BP Systolic 102 mmHg BP Diastolic 52 mmHg Heart Rate 68 /min Height 70 inches 5'10 Weight 186.00 lb BMI (Body Mass Index) 26.7 kg/m2 Results Test Acquired Date Facility Test Result H/L Range N ote Hemoglobin A1c 03/19/2025 Inhouse Hemoglobin A1c 5.7% Glucose Fingerstick 03/19/2025 Inhouse Glucose Fingerstick 111 Glucose Fingerstick 12/21/2024 Inhouse Glucose Fingerstick 113 Hemoglobin A1c 12/21/2024 Inhouse Hemoglobin A1c 5.7% Glucose Fingerstick 08/18/2024 Inhouse Glucose Fingerstick 150 Hemoglobin A1c 08/18/2024 Inhouse Hemoglobin A1c 6.4% Glucose Fingerstick 04/09/2024 Inhouse Glucose Fingerstick 174 Hemoglobin A1c 04/09/2024 Inhouse Hemoglobin A1c 5.9% Glucose Fingerstick 12/10/2023 Inhouse Glucose Fingerstick 102 Hemoglobin A1c 12/10/2023 Inhouse Hemoglobin A1c 6.1% Glucose Fingerstick 08/08/2023 Inhouse Glucose Fingerstick 91 Hemoglobin A1c 08/08/2023 Inhouse Hemoglobin A1c 5.7% Glucose Fingerstick 05/17/2023 Inhouse Glucose Fingerstick 126 Hemoglobin A1c 05/17/2023 Inhouse Hemoglobin A1c 6.4% Glucose Fingerstick 01/22/2023 Inhouse Glucose Fingerstick 132 Hemoglobin A1c 01/22/2023 Inhouse Hemoglobin A1c 6.0% Hemoglobin A1c 08/10/2022 Inhouse Hemoglobin A1c 5.8% Glucose Fingerstick 08/10/2022 Inhouse Glucose Fingerstick 131 Procedures Date Code Description Status 03/19/2025 39189 Glucose Monitoring Interpeta tion And Report Completed 12/21/2024 97521 Glucose Monitoring Interpeta tion And Report Completed 08/18/2024 28423 Glucose Monitoring Interpeta tion And Report Completed 12/10/2023 17912 Glucose Monitoring Interpeta tion And Report Completed 05/17/2023 37320 Glucose Monitoring Interpeta tion And Report Completed Medical Devices Description No Information Available Encounters Type Date Location Provider Dx Diagnosis Office Visit 12/21/2024 8:15a Main Office EDUARD Santos E10.9 Type 1 diabet es mellitus without complications E78.00 Pure hypercholestero lemia, unspecified K51.90 Ulcerative colitis, unspecified, without complications Z90.49 Acquired absence of other specified parts of digestive tract R97.20 Elevated prostate sp ecific antigen [PSA] I10 Essential (primary) hypertension F41.9 Anxiety disorder, un specified Assessments Date Code Description Provider 03/19/2025 E10.9 Type 1 diabetes mellitus wit hout complications EDUARD Santos 12/21/2024 E10.9 Type 1 diabetes mellitus wit hout complications EDUARD Santos 12/21/2024 E78.00 Pure hypercholesterolemia, u nspecified EDUARD Santos 12/21/2024 K51.90 Ulcerative colitis EDUARD Jaime 12/21/2024 Z90.49 History of colectomy EDUARD Santos 12/21/2024 R97.20 Raised prostate specific ant igen EDUARD Santos 12/21/2024 I10 Essential (primary) hyperten sterling EDUARD Santos 12/21/2024 F41.9 Anxiety disorder, unspecifie d EDUARD Santos Plan of Treatment Future Appointment(s):* 06/25/2025 9:00 am - Lyly Shaikh CNP at Main Office 03/19/2025 - EDUARD Santos* E10.9 Type 1 diabetes mellitus without complications Functional Status Description No Information Available Mental Status Description No Information Available Referrals Description No Information Available
[2025-04-30 12:59] LABS: Free Prostate Spec Ag 1.9 ng/mL; Percent Free Prostate Spec Ag 24 % (calc) (>25)
== END 2025-04-29 07:28 | disposition home or self-care (01) ==
LOC: HO.LAB 07:27
PROVIDERS: PCP Physician Assistant; Visit Provider Nurse Practitioner
DX: R97.20 Elevated prostate specific antigen [PSA] (principal)
CPT/HCPCS: 36415; 84154

== ENCOUNTER → 2025-06-17 07:15 | Outpatient (BNV) | payer OTHER, MEDICARE, SELFPAY | PROVIDERS: Visit Provider Radiology Diagnostic Radiology | DX: R91.1 Solitary pulmonary nodule (principal); R06.02 Shortness of breath | CPT/HCPCS: 71045; 71275 ==

== ENCOUNTER 2025-06-17 07:43 | Emergency (ER) | payer OTHER, MEDICARE, SELFPAY ==
--- NOTE | 2025-06-17 | ECG_ITS ---
Test Reason : dyspnea Blood Pressure : */* mmHG Vent. Rate : 75 BPM Atrial Rate : 75 BPM P-R Int : 176 ms QRS Dur : 86 ms QT Int : 360 ms P-R-T Axes : 67 27 6 degrees QTcB Int : 402 ms Normal sinus rhythm Normal ECG When compared with ECG of 21-Apr-2025 16:27, ST no longer elevated in Inferior leads T wave inversion now evident in Inferior leads Referred By: Generic ED Physician Electronically Signed By: FRANCISCO VILLALOBOS MD
--- NOTE | ~2025-06-17 | CT_ITS ---
EXAMINATION: CT ANGIOGRAM CHEST CLINICAL INFORMATION: Shortness of breath. Recent procedure. COMPARISON: None available. TECHNIQUE: Multiple axial images were obtained through the chest after the administration of 65 mL of Omnipaque 350 intravenous contrast. Extensive vascular post-processing including two-dimensional and three-dimensional reformatted images were created and reviewed on an independent workstation. SmartPrep technique. DLP: [address] examination was performed using dose optimization techniques as appropriate, variously including the following: *Automated exposure control *Adjustment of mA and/or kV according to patient size (this includes techniques or standardized protocols for targeted exams where dose is matched to indication/reason for exam; i.e. extremities or head) *Use of iterative reconstruction technique FINDINGS: And pulmonary artery and its main branches are patent without intraluminal filling defects. No aneurysm or dissection, thoracic aorta. Intraluminal secretions in the subsegmental bronchi of both lower lower lobes. Peribronchial septal thickening. Patchy pulmonary groundglass, lower lung lobes. No pleural effusion. No pneumothorax. No lymphadenopathy, mediastinum or perihilar. No pericardial effusion. Calcified plaques in the coronary arteries. . 8 mm partially calcified nodule, right lower lobe. CT/CT angio chest PE protocol IMPRESSION: No acute pulmonary artery emboli. No aneurysm or dissection thoracic aorta. Probable acute bronchitis versus allergic bronchopulmonary aspergillosis. 8 mm calcified nodule, right thyroid lobe. Coronary artery disease. Fleischner guidelines were followed. Electronically signed by: Ronni Cobb MD 06/17/2025 10:12 AM EDT
--- NOTE | ~2025-06-17 | XR_ITS ---
EXAMINATION: XR CHEST 1 VIEW HISTORY: sob/productive cough COMPARISON: Comparison is made with the prior examination dated 04/21/2025. FINDINGS: A single AP portable view of the chest performed at 8:15 AM is submitted. The lungs are expanded and clear. There is no pleural effusion, pneumothorax, or pulmonary vascular congestion. The heart is normal in size. The bones are intact. XR/XR chest 1V IMPRESSION: No acute cardiopulmonary abnormality. Electronically signed by: Jus Rivera MD 06/17/2025 08:28 AM EDT
[2025-06-17 07:47] VITALS: BP 120/58; PULSE 83; RESP 17; TEMP 37; O2SAT 92; BMI 26.1
[2025-06-17 08:04] VITALS: BP 130/62; PULSE 87; RESP 18; TEMP 36.9; O2SAT 94
[2025-06-17 08:07] LABS: MANUAL DIFF FLAG NO
[2025-06-17 08:09] LABS: Hematocrit 43.4 % (42.0-52.0); Hemoglobin 15.7 g/dl (14.0-18.0); Imm Gran Abs Auto 0.06 X10*3/uL (0.00-0.03); Imm Gran Pct Auto 0.4 % (0.0-0.4); Lymphocytes Absolute Auto 1.1 X10*3/uL (1.2-4.9); Mean Corpuscular HGB Conc 36.2 g/dl (31.0-36.0); Mean Corpuscular Hemoglobin 32.0 pg (27.0-33.0); Mean Corpuscular Volume 88.6 fL (80.0-98.0); NRBC Abs Auto 0.000 X10*3/uL (0.0-0.012); NRBC Pct Auto 0.0 /100WBC (0.0-0.2); Platelet Count 212 X10*3/uL (160-400); Red Blood Count 4.90 X10*6/uL (4.60-5.80); White Blood Count 15.6 X10*3/uL (4.8-10.8)
--- NOTE | 2025-06-17 08:13 | ED_ITS ---
HPI - General Adult General Chief complaint: Dyspnea Stated complaint: Cough, sweating Time Seen by Provider: 06/17/25 08:10 Source: patient Mode of arrival: ambulatory Limitations: no limitations History of Present Illness ED Provider: Tram Rowe PA-C HPI narrative: Patient is a 69 year old assigned male at with a history of recent cardiac stent placement - on anti-coagulation medication presenting to the emergency department today with shortness of breath, a productive cough, and chills. Patient states that over the last week he has felt generally unwell with a cough and chills. Patient denies any dizziness, lightheadedness, abdominal pain, nausea, vomiting, fever, blurry vision, double vision, loss of vision, chest pain, back pain, night sweats, pain with urination, increased urinary frequency, increased urinary urgency, blood in his urine or stool, syncope or a near syncopal episode, recent trauma or falls, bowel incontinence, bladder incontinence, or any other complaints at this time. Onset (ago): week(s) (1) Relieving factors: none Exacerbating factors: none Associated symptoms: cough, fever/chills and shortness of breath Treatments prior to arrival: none Related Data Previous Rx's ?Medication ?Instructions ?Recorded prednisone 20 mg tablet 40 mg (2 x 20 mg) PO DAILY # 10 tabs 10/06/21 amoxicillin 875 mg-potassium 1 tab PO BID 10 days #20 tabs 11/24/22 clavulanate 125 mg tablet amoxicillin 875 mg-potassium 1 tab PO BID 7 days #14 t abs 06/17/25 clavulanate 125 mg tablet doxycycline hyclate 100 mg tablet 100 mg PO BID 7 days #14 tabs 06/17/25 Allergies Allergy/AdvReac Type Severity Reaction Status Date / Time No Known Allergies Allergy Verified 06/17/25 07:51 Review of Systems 2 Constitutional: Constitutional: Reports no additional constitutional complaints, Reports chills, Denies fever(s) and Denies night sweats Eyes: Eyes: Reports no additional eye complaints, Denies blurry vision, Denies change in vision, Denies diplopia, Denies eye discharge, Denies loss of vision and Denies eye pain ENT: Denies dizziness Cardiovascular: Cardiovascular: Reports no additional cardiovascular complaints, Denies chest pain, Denies lightheadedness, Denies Loss of Consciousness and Reports dyspnea Respiratory: Respiratory: Reports no additional respiratory complaints, Reports cough and Reports dyspnea Gastrointestinal: Gastrointestinal: Reports no additional gastrointestinal complaints, Denies abdominal pain, Denies melena, Denies hematochezia, Denies change in bowel habits and Denies change in stool character Genitourinary: Genitourinary: Reports no additional male genitourinary complaints, Denies hematuria, Denies oliguria, Denies difficulty urinating, Denies dysuria, Denies urinary frequency, Denies urinary hesitancy, Denies urinary incontinence and Denies urinary urgency Musculoskeletal: Musculoskeletal: Reports no additional musculoskeletal complaints, Denies numbness and Denies tingling Neurologic: Denies dizziness, Denies loss of vision, Denies numbness and Denies tingling Psychiatric: Psychiatric: Reports no additional psychiatric complaints Endocrine: Endocrine: Reports no additional endocrine complaints Hematologic/Lymphatic: Hematologic/Lymphatic: Reports no additional hematologic/lymphatic complaints Allergic/Immunologic: Allergic/Immunologic: Reports no additional allergic/immunologic complaints PMFSH Past Medical History Attestation statement: The following information was validated with the patient. Source: old records reviewed and nursing notes reviewed Social History Social History Smoked in Last 30 Days: No Advance Directives: No Advance Directives Information Provided: Yes Do you have a plan to hurt others: No Plan Physical Exam ED Vital Signs: Vital Signs - 24 hr 06/17/25 07:47 06/17/25 08:04 06/17/25 10:25 Temperature 98.6 F 98.4 F Pulse Rate 83 87 65 Respiratory Rate 17 18 17 Blood Pressure 120/58 L 130/62 126/62 Pulse Oximetry 92 94 97 Oxygen Delivery Method Room Air Room Air Room Air 06/17/25 10:46 Temperature 98.4 F Pulse Rate 65 Respiratory Rate 17 Blood Pressure 126/62 Pulse Oximetry 97 Oxygen Delivery Method Room Air BMI result Body Mass Index 26.1 Const General: cooperative, no acute distress, alert and awake Nutritional Appearance: well nourished Orientation/consciousness: patient oriented x3 HENMT Head: Yes normal to inspection and Yes atraumatic Ears: hearing grossly normal bilaterally and external ears normal General nose exam: Normal external nose present, no nasal discharge noted and no epistaxis Face and sinus: Yes normal facial exam, No abrasion and No laceration Mouth: Normal oral and palatal mucosa present, no drooling and no muffled voice Eyes General: appearance normal, both eyes and all related structures Periorbital: periorbital findings normal Eyelids: Yes eyelids normal Conjunctivae: conjunctivae normal Pupils: Equal, round and reactive pupils present EOM: EOMs intact bilaterally Neck Neck: Yes normal visual inspection, Yes full ROM and Yes no lymphadenopathy Resp Effort & Inspection: normal respiratory effort, able to speak in complete sentences and Actively coughing Quality: productive Neuro General: patient oriented x3, moves all extremities and CN's II-XI intact bilaterally Cranial nerves: Yes Equal, round and reactive pupils present Cognition (Neuro): normal cognition Extrem General: Yes normal to inspection, Yes full ROM and Yes capillary refill normal Psych Appearance: grossly normal Mental Status: mental status grossly normal Affect: normal affect Attitude: cooperative Thought process: Normal thought process present Thought content: Normal thought content present Insight: Good insight present (Psych) Medications Administered Discontinued Medications Generic Name Dose Route Start Last Admin Trade Name Freq PRN Reason Stop Dose Admin Iohexol 100 ml 06/17/25 09:09 06/17/25 09:09 Iohexol 350 Mg/Ml 100 Ml Infus..Btl IV 06/17/25 09:10 65 ml ONCE ONE Administration Medical Decision Making Medical Decision Making [facility] Narrative: Patient is a 69 year old assigned male at with a history of recent cardiac stent placement - on anti-coagulation medication presenting to the emergency department today with shortness of breath, a productive cough, and chills. Patient's physical exam showed an individual with a productive cough but otherwise unremarkable. Patient's blood work showed an elevated WBC count of 15.6 and otherwise unremarkable. Patient's EKG was unremarkable. Patient's chest x-ray showed no acute process. Patient's CT PE study showed evidence of acute bronchitis. Given the patient's clinical presentation - I am suspicious of an atypical pneumonia and will treat him for such. Patient was ambulated and his saturation remained >95%. At no point was he hypoxic or requiring oxygen while in the department. I explained my physical exam findings as well as all test results to the patient. I answered all questions asked by the patient. I stressed the importance of the patient taking his medication as directed (either prescribed or as the over the counter packaging recommends). I stressed the importance of the patient following up with his primary care provider. I stressed the importance of the patient returning to the emergency department immediately if his symptoms were to worsen or if he were to develop any dizziness, shortness of breath, difficulty breathing, chest pain, blurry vision, loss of vision, nausea, vomiting, abdominal pain, fever, chills, back pain, or any other complaints. Patient verbalized agreement and understanding with this treatment plan and discharge. Differential Diagnosis Differential Diagnoses: The differential diagnosis associated with the presentation includes Pneumonia Cough Shortness of breath Admission/Observation Consideration of admission/observation: Escalation of care including admission/observation considered Patient would have been admitted to the hospital had his work up had any findings where hospital admission was appropriate and his clinical presentation warranted hospital admission. Lab Data [facility] Lab Attestation statement: I reviewed the patient's lab results. My interpretation of these results are in the [facility] Rationale portion of this note. 06/17/25 08:01 06/17/25 08:01 Labs: Lab Results 06/17/25 Range/Units 08:01 WBC 15.6 H (4.8-10.8) X10*3/uL RBC 4.90 (4.60-5.80) X10*6/uL Hgb 15.7 (14.0-18.0) g/dl Hct 43.4 (42.0-52.0) % MCV 88.6 (80.0-98.0) fL MCH 32.0 (27.0-33.0) pg MCHC 36.2 H (31.0-36.0) g/dl RDW 12.1 (11.0-16.0) % Plt Count 212 (160-400) X10*3/uL MPV 9.5 (9.4-12.4) fL Immature Gran % (Auto) 0.4 (0.0-0.4) % Neut % (Auto) 84.2 H (45-73) % Lymph % (Auto) 6.8 L (20-40) % [place] % (Auto) 8.2 (2-11) % Eos % (Auto) 0.2 (0-4) % Baso % (Auto) 0.2 (0-2) % Lymph # (Auto) 1.1 L (1.2-4.9) X10*3/uL [place] # (Auto) 1.3 H (0.1-1.2) X10*3/uL Eos # (Auto) 0.0 (0.0-0.4) X10*3/uL Baso # (Auto) 0.0 (0.0-0.2) X10*3/uL Abs Immat Gran (auto) 0.06 H (0.00-0.03) X10*3/uL Absolute Neuts (auto) 13.1 H (2.0-8.3) x10*3/uL Absolute Nucleated RBC 0.000 (0.0-0.012) X10*3/uL Nucleated RBC % (auto) 0.0 (0.0-0.2) /100WBC PT 11.9 (10.9-12.4) SEC INR 1.0 (0.9-1.1) APTT 27.8 (26.7-34.1) SEC Sodium 136 (135-145) mmol/L Potassium 4.1 (3.3-5.1) mmol/L Chloride 108 (96-108) mmol/L Carbon Dioxide 21 L (22-29) mmol/L Anion Gap 11 L (12-20) BUN 20 H (9-16) mg/dL Creatinine 0.95 (0.5-1.4) mg/dL Estim Creat Clear Calc 75.7 Estimated GFR > 60 Random Glucose 189 H (60-115) mg/dL Calcium 9.0 D (8.4-10.2) mg/dL Magnesium 1.9 (1.6-2.6) mg/dL Total Bilirubin 1.1 H (0.0-1.0) mg/dL AST 30 (5-37) U/L ALT 27 (0-40) U/L Alkaline Phosphatase 42 (39-117) U/L Troponin I High Sens 8.0 (<3.5-35.0) ng/L Total Protein 6.8 (6.5-8.0) g/dL Albumin 3.8 (3.5-5.0) g/dL Influenza Type A (PCR) NEGATIVE (Negative) Influenza Type B (PCR) NEGATIVE (Negative) RSV RNA Qual (PCR) NEGATIVE (Negative) SARS-CoV-2 RNA (RT-PCR) NEGATIVE (Negative) Independent Interpretation I performed an independent interpretation of an: EKG, Plain X-Ray and CT Scan Interpretation: My interpretation is in agreement with the radiologist's impression of these imaging studies. L EXAMINATION: XR CHEST 1 VIEW HISTORY: sob/productive cough COMPARISON: Comparison is made with the prior examination dated 04/21/2025. FINDINGS: A single AP portable view of the chest performed at 8:15 AM is submitted. The lungs are expanded and clear. There is no pleural effusion, pneumothorax, or pulmonary vascular congestion. The heart is normal in size. The bones are intact. XR/XR chest 1V IMPRESSION: No acute cardiopulmonary abnormality. Electronically signed by: Jus Rivera MD 06/17/2025 08:28 AM EDT RP Dictated By: Jus Rivera MD Signed By: Electronically signed by Jus Rivera MD 06/17/25 0828 Report Number: [id number]: Total DLP = 249.00 mGy-cm EXAMINATION: CT ANGIOGRAM CHEST CLINICAL INFORMATION: Shortness of breath. Recent procedure. COMPARISON: None available. TECHNIQUE: Multiple axial images were obtained through the chest after the administration of 65 mL of Omnipaque 350 intravenous contrast. Extensive vascular post-processing including two-dimensional and three- dimensional reformatted images were created and reviewed on an independent workstation. SmartPrep technique. DLP: [address] examination was performed using dose optimization techniques as appropriate, variously including the following: *Automated exposure control *Adjustment of mA and/or kV according to patient size (this includes techniques or standardized protocols for targeted exams where dose is matched to indication/reason for exam; i.e. extremities or head) *Use of iterative reconstruction technique FINDINGS: And pulmonary artery and its main branches are patent without intraluminal filling defects. No aneurysm or dissection, thoracic aorta. Intraluminal secretions in the subsegmental bronchi of both lower lower lobes. Peribronchial septal thickening. Patchy pulmonary groundglass, lower lung lobes. No pleural effusion. No pneumothorax. No lymphadenopathy, mediastinum or perihilar. No pericardial effusion. Calcified plaques in the coronary arteries. 8 mm partially calcified nodule, right lower lobe. CT/CT angio chest PE protocol IMPRESSION: No acute pulmonary artery emboli. No aneurysm or dissection thoracic aorta. Probable acute bronchitis versus allergic bronchopulmonary aspergillosis. 8 mm calcified nodule, right thyroid lobe. Coronary artery disease. Fleischner guidelines were followed. Electronically signed by: Ronni Cobb MD 06/17/2025 10:12 AM EDT RP Dictated By: Ronni Miller MD Signed By: Electronically signed by Ronni Montenegro MD 06/17/25 1012 I independently interpreted this EKG and am in agreement with the below findings: Vent. Rate: 75 BPM Atrial Rate: 75 BPM P-R Int: 176 ms QRS Dur: 86 ms QT Int: 360 ms P-R-T Axes: 67 27 6 degrees QTcB Int: 402 ms Normal sinus rhythm Normal ECG When compared with ECG of 21-Apr-2025 16:27, ST no longer elevated in Inferior leads T wave inversion now evident in Inferior leads Electronically Signed By: CLAYTON VILLALOBOS MD Dictated By: Clayton Villalobos MD Signed By: Electronically signed by Clayton Villalobos MD 06/17/25 0953 Radiology Impression Discussion of test interpretation with radiology: I have reviewed the radiologist's reading. Prescription Management I considered prescription management with: Antibiotic (Patient prescribed antibiotics for probable atypical PNA) Discharge Plan Discharge Clinical Impression: PNA (pneumonia) Patient Disposition: Home, Self-Care Instructions: Community Acquired Pneumonia (DC) Additional Instructions: Take your antibiotic as prescribed. Eat with taking the antibiotics however - avoid dairy and avoid direct sunlight while on them. Follow up with a primary care provider. Return to the emergency department immediately if your symptoms worsen or if you develop any numbness, tingling, dizziness, shortness of breath, difficulty breathing, chest pain, blurry vision, loss of vision, nausea, vomiting, abdominal pain, fever, chills, back pain, or any other complaints. L If you do not have a primary care provider - call any of the below numbers to establish and follow up with a primary care provider. [facility] [place] ([place]) [phone] [place] [address], [address] [facility] [place] ([address] [place]) [phone] [place] [address], [address] [facility], [address] [facility] [place] [facility] ([address] [place]) [phone] [place] [address], [address] [facility], [address] [facility] [place] [place] Care ([place]) [phone] [place] [address] 2 [facility], [address] [facility] [place] [facility] Family Medicine [phone] [place] [address], [address] Please see the information below about our Patient Portal. If you are not yet enrolled in the [facility] Patient Portal, you will receive an enrollment email invitation following your visit to any [facility] [place], located within [facility] setting. You may also self-enroll in the Patient Portal by visiting our website: [email or web address] The following information is required to access the Patient Portal: - Your [facility] [place] Medical Record Number - Your personal home email address (must match what is in your electronic medical record, Registration staff can assist with this) - Name - Date of Capabilities of the Patient Portal: - Message some providers - View upcoming appointments - Access your health summary, medical history, and visit history - View current conditions and allergies - View procedure and lab results - View your medications, including guidelines, side effects, and precautions - Complete pre-appointment questionnaires requested by your provider - Ready summary reports of your office visits and procedures To access the Patient Portal Mobile [employer]hon[employer], follow these directions: - Search Maven in the [employer] Store or [employer] Store - Download the Jhonny - Search for [facility] - Enter your login/password Prescriptions: New doxycycline hyclate 100 mg tablet 100 mg PO BID 7 Days Qty: 14 0RF amoxicillin-pot clavulanate 875-125 mg tablet 1 tab PO BID 7 Days Qty: 14 0RF No Action prednisone 20 mg tablet 40 mg PO DAILY Qty: 10 0RF amoxicillin-pot clavulanate 875-125 mg tablet 1 tab PO BID 10 Days Qty: 20 0RF Interventions: ED Discharge Assessment Last Done: 06/17/25 10:46 Discharge Date/Time: 06/17/25 10:47 Print Language: Persian
--- NOTE | 2025-06-17 08:15 | PC.NURSE ---
Pt to ED 13 from triage fro c/o SOB. A/O x 3, denies pain. Ambulates without difficulty. O2 sat 94% on room air, + cough noted. Labs pending, #20 placed to [facility].
[2025-06-17 08:17] LABS: INTERNATIONAL NORM RATIO 1.0 (0.9-1.1); Prothrombin Time 11.9 SEC (10.9-12.4)
[2025-06-17 08:20] LABS: Partial Thromboplastin Time 27.8 SEC (26.7-34.1)
[2025-06-17 08:30] LABS: Troponin-I High Sensitivity 8.0 ng/L (<3.5-35.0)
[2025-06-17 08:34] LABS: Alanine Aminotransferase 27 U/L (0-40); Albumin Level 3.8 g/dL (3.5-5.0); Alkaline Phosphatase 42 U/L (39-117); Anion Gap 11 (12-20); Aspartate Amino Transferase 30 U/L (5-37); Blood Urea Nitrogen 20 mg/dL (9-16); Calcium 9.0 mg/dL (8.4-10.2); Carbon Dioxide 21 mmol/L (22-29); Chloride 108 mmol/L (96-108); Creatinine Clr Calc Pharmacy 75.7; Estimated Glomerular Filt Rate > 60; Magnesium 1.9 mg/dL (1.6-2.6); Potassium 4.1 mmol/L (3.3-5.1); Sodium 136 mmol/L (135-145); Total Protein 6.8 g/dL (6.5-8.0)
--- OUTSIDE RECORDS SUMMARY | 2025-06-17 08:52 | XMS_ITS | Clinical Summary ---
Author Organization [facility] Address [address] [phone] Phone Care Team Providers Care Cloth Packer Name Role Phone Jc Nagel MD Primary Care Provider Allergies No known active allergies Medications aspirin 81 MG EC tablet Take 81 mg by mouth daily. 08/10/2022 Active GUARDIAN 4 GLUCOSE SENSOR [place] 01/01/2024 Active escitalopram oxalate (LEXAPRO) 20 MG tablet Take 20 mg by mouth daily. Active HUMALOG U-100 INSULIN 100 unit/mL injection vial Activ e lisinopril (PRINIVIL,ZESTRI L) 5 MG tablet Take 5 mg by mouth daily. Active rosuvastatin (CRESTOR) 20 MG tablet Take 20 mg by mouth daily. 01/22/2023 Active Active Problems Problem Noted Date Diagnosed Date Diabetes mellitus 08/10/2022 History of colectomy 08/10/2022 Hypercholesterolemia 08/10/2022 Raised prostate specific antigen 08/10/2022 Assessment & Plan (02/21/2024 4:51 PM EDT): Elevated PSA in this 68-year-old gentleman status post total proctocolectomy. Fortunately, prostate MRI shows no areas suspicious for clinically significant prostate cancer, and his large prostate is a reasonable explanation for his high PSA. We will recheck his PSA value 6 months after the prior, and if that remains stable or lower then we will return to annual screening. Assessment & Plan (01/03/2024 6:53 PM EST): Gagan Reeves is a 68 y.o. male with a serum PSA that is elevated and rising. He does not have a family history of prostate cancer, and he had a negative biopsy in 2007. His situation is complicated by the fact that he cannot have a transrectal ultrasound, thereby making biopsy more challenging. I spent this consultation discussing the implications of an elevated PSA including the fact that the PSA level may be affected by various factors including age, prostate size, ethnicity, use of medications, and concurrent prostatic inflammation. Serum PSA level is generally proportional to the risk of prostate cancer but there is no specific PSA cut-off signifying prostate cancer. We reviewed PSA measurements and discussed the value of this lab test as well as its limitations and the complexities behind its interpretation. Normal range is typically considered between 0-4 ng/mL however this can be interpreted in the context of several other factors. Age-specific reference ranges are available and we discussed that PSA reflects the amount of glandular epithelium in the prostate which in turn reflects prostate size. As prostate size increases with increasing age PSA concentration also rises. Moreover PSA may increase at a faster rate in an older man. As a result normal reference ranges may vary depending upon age: 40-49 years 0-2.5 ng/mL 50-59 years 0-3.5 ng/mL 60-69 years 0-4.5 ng/mL 70-79 years of 0-6.5 ng/mL We also discussed several common causes of elevated serum PSA including benign prostatic hyperplasia, prostatic inflammation and infection, perineal trauma, and prostate cancer. PSA velocity is also another approach used to evaluate the rate of PSA ion exchange operator time. Continuously rising PSA over time may be more likely to reflect prostate cancer than one which is elevated but consistently stable. In addition we discussed magnetic resonance imaging which offers increasingly reliable visualization of potentially significant prostate cancer. We discussed the value of MRI in detail including its ability to detect clinically significant disease. Therefore this imaging modality has advantages as a means by which to better select patients for biopsy and can also facilitate direct targeting of suspicious lesions during biopsy. In addition MRI provides a very accurate measurement of size, which allows us to calculate PSA density. After discussion of options, we will move forward with a prostate MRI and then review indications and approaches for possible biopsy if necessary. Ulcerative colitis 08/10/2022 Social History Tobacco Use Types Packs/Day Years Used Date Smoking Tobacco: Unknown Tobacco Cessation:Counseling Given: Not Answered Education Answer Date Recorded Are you interested in more education? Not on gavin e 12/30/2023 Are you concerned about learning? Not on file 12/30/2023 No 12/30/2023 No 12/30/2023 Digital Access Answer Date Recorded No 12/30/2023 No 12/30/2023 Reliable internet access at home? Not on file 12/30/2023 Device with a working camera? Not on file Sex and Gender Information Value Date Recorded Sex Assigned at Not on file Legal Sex Male 9:55 PM EDT Gender Identity Not on file Sexual Orientation Not on file Plan of Treatment Health Maintenance Due Date Last Done Comments Adult Td,Tdap Booster 1955 BLOOD PRESSURE 1955 CREATININE LEVEL 1955 HEMOGLOBIN A1C 1955 POTASSIUM LEVEL 1955 DEPRESSION SCREENING 1967 SMOKING Hx and SMOKELESS TOB ACCO SCREENING 1968 HEPATITIS C SCREENING 1973 PNEUMOCOCCAL VACCINES (50+ y ears) (1 of 2 - PCV) 1974 COLOGUARD 2000 COLONOSCOPY 2000 COLORECTAL CANCER SCREENING 2000 FIT TEST 2000 FOBT 2000 SIGMOIDOSCOPY 2000 VIRTUAL COLONOSCOPY 2000 ZOSTER VACCINES (1 of 2) 2005 RSV VACCINE (1 - Risk 60-74 years 1-dose series) 2015 DIABETIC EYE EXAM 01/03/2024 COVID-19 VACCINE (1 - 2023-2 5 season) 2024 HEPATITIS A VACCINES Aged Out No long er eligible based on patient's age to complete this topic HIB VACCINES Aged Out No longer eligi ble based on patient's age to complete this topic MENINGOCOCCAL VACCINES (ACWY) Aged Out No longer eligible based on patient's age to complete this topic MENINGOCOCCAL VACCINES (B) Aged Out N o longer eligible based on patient's age to complete this topic Medical Devices Not on file Insurance [employer] Care Teams Cloth Packer Relationship Specialty Start Date End Date Jc Nagel MD [address] [place] [phone] PCP - General Internal Medicine 12/30/23 Additional Source Comments The information contained in this document represents components of the legal health record. It is not the complete legal health record.[facility]
--- OUTSIDE RECORDS SUMMARY | 2025-06-17 08:52 | XMS_ITS | Continuity of Care Document ---
Author Organization [facility] [address] [facility] [address] [place] [address] Phone [phone] Care Team Providers Care Process Description Writer Name Role Phone Jc Nagel M.D. Care Team Information Rece iver [phone] Gilbert Mason Care Team Information Receive r [phone] Problems Active Problems Provider Date Diabetes mellitus Jc Nagel M.D. Onset: 0 08/10/2022 Raised prostate specific antigen Jc Nagel M.D. Onset: 08/10/2022 Ulcerative colitis Jc Nagel M.D. Onset: 08/10/2022 Hypercholesterolemia Jc Nagel M.D. Onset : 08/10/2022 History of colectomy Jc Nagel M.D. Onset : 08/10/2022 Social History Type Date Description Comments Sex Male Sex Unknown Tobacco Use Start: Unknown Never Smoked Cigarettes ETOH Use Never used alcohol Allergies and [...] test twice a day dx:e10.9 150units E10.9 Liyah Foss M.D. 04/09/2024 Rosuvastatin [id number] Tablets Take 1 Tablet By Mouth Every Day 90tajody Foss M.D. 01/22/2023 Freestyle Lite TestStrips Lite Strip Use 1 Strip To Test Blood Sugars Six (6) Times A Day 600unld Nagel M.D. Escitalopram [id number] Tablets Take 1 Tablet By Mouth Every Day 90tajody Foss M.D. Thtfxaw445Asqv/ML Solution Inject 50-60 Units Under The Skin Every Day as Directed Via Insulin Pump 60unld Foss M.D. Yaypmefstm1rc Tablets Take 1 Tablet By Mouth Every Day 90tabs Liyah Foss M.D. Vital Signs Date Vital Result [...] 131 Procedures Date Code Description Status 03/19/2025 20210 Glucose Monitoring Interpeta tion And Report Completed 12/21/2024 95718 Glucose Monitoring Interpeta tion And Report Completed 08/18/2024 91709 Glucose Monitoring Interpeta tion And Report Completed 12/10/2023 02655 Glucose Monitoring Interpeta tion And Report Completed 05/17/2023 90735 Glucose Monitoring Interpeta tion And Report Completed Medical Devices Description No Information Available Encounters Type Date Location Provider Dx Diagnosis Office Visit 03/19/2025 8:15a Main Office EDUARD Santos E10.319 Type 1 diabet es w unsp diabetic rtnop w/o macular edema E78.00 Pure hypercholestero lemia, unspecified K51.90 Ulcerative colitis, unspecified, without complications Z90.49 Acquired absence of other specified parts of digestive tract R97.20 Elevated prostate sp ecific antigen [PSA] F41.9 Anxiety disorder, un specified Assessments Date Code Description Provider 03/19/2025 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 EDUARD Santos 03/19/2025 E78.00 Pure hypercholesterolemia, u nspecified EDUARD Santos 03/19/2025 K51.90 Ulcerative colitis EDUARD Jaime 03/19/2025 Z90.49 History of colectomy EDUARD Santos 03/19/2025 R97.20 Raised prostate specific ant igen EDUARD Santos 03/19/2025 F41.9 Anxiety disorder, unspecifie d EDUARD Santos Plan of Treatment Future Appointment(s):* 07/05/2025 8:30 am - Sadie Harmon NP at Main Office 03/19/2025 - EDUARD Santos* 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
[2025-06-17 08:53] LABS: Resp Syncy Virus RNA Qual PCR NEGATIVE (Negative); SARS COV2 PCR INHOUSE NEGATIVE (Negative)
[2025-06-17] MEDS: iohexoL 350 MG/ML 100 ML INFUS..BTL IV (09:09)
[2025-06-17 10:25] VITALS: BP 126/62; PULSE 65; RESP 17; O2SAT 97
[2025-06-17 10:46] VITALS: BP 126/62; PULSE 65; RESP 17; TEMP 36.9; O2SAT 97
== END 2025-06-17 10:47 | disposition home or self-care (01) ==
PROVIDERS: Emergency Provider Emergency Medicine Emergency Medical Services
DX: J18.9 Pneumonia, unspecified organism (principal); R05.9 Cough, unspecified; R50.9 Fever, unspecified; R06.02 Shortness of breath; Z03.818 Encounter for observation for suspected exposure to other biological agents ruled out; Z79.899 Other long term (current) drug therapy
CPT/HCPCS: 71045; 71275; 80053; 83735; 84484; 85025; 85610; 85730; 87637; 93005; 99284; 99285; Q9967

== ENCOUNTER → 2025-06-17 07:53 | Outpatient (BNV) | payer OTHER, MEDICARE, SELFPAY | PROVIDERS: Visit Provider Internal Medicine Cardiovascular Disease | DX: R06.00 Dyspnea, unspecified (principal) | CPT/HCPCS: 93010 ==

== ENCOUNTER 2025-06-30 10:00 | Outpatient (RCR) | payer OTHER, MEDICARE, SELFPAY ==
[2025-06-04 11:10] LABS: Glucose, Whole Blood 125 mg/dL (60-115)
[2025-06-11 11:21] LABS: Glucose, Whole Blood 96 mg/dL (60-115)
[2025-06-11 11:21] LABS: Glucose, Whole Blood 74 mg/dL (60-115)
[2025-06-11 11:21] LABS: Glucose, Whole Blood 83 mg/dL (60-115)
[2025-06-23 11:20] LABS: Glucose, Whole Blood 133 mg/dL (60-115)
== END 2025-06-30 11:10 | disposition home or self-care (01) ==
LOC: HO.CR 10:00
PROVIDERS: PCP Physician Assistant; Visit Provider Internal Medicine Cardiovascular Disease
DX: I21.3 ST elevation (STEMI) myocardial infarction of unspecified site (principal)
CPT/HCPCS: 82947; 93798